=== PATIENT | male | born 1990 ===

== ENCOUNTER 2017-10-31 23:25 | Emergency (ER) | payer SELFPAY ==
[2017-10-31 23:48] VITALS: BP 150/87; PULSE 78; RESP 18; TEMP 97.9; O2SAT 97
--- NOTE | 2017-11-01 00:08 | C.PDOC ---
History Of Present Illness 27 year old male presents to the ED c/o rash to her right armpit for the past week. Patient states he has been using hydrocortisone cream on his rash. Patient states he works outside and when he sweats the area becomes painful. Patient denies fever, chills, nausea, vomit, diarrhea, weakness, numbness. Time Seen by Provider: 10/31/17 23:39 Chief Complaint (Nursing): Abnormal Skin Integrity History Per: Patient History/Exam Limitations: no limitations Onset/Duration Of Symptoms: Days Current Symptoms Are (Timing): Still Present Location Of Injury: Right: Arm Quality Of Symptoms: Painful, Itching. denies: Draining Recent travel outside of the [place]: No Additional History Per: Patient Past Medical History Reviewed: Historical Data, Nursing Documentation, Vital Signs Vital Signs: Last Vital Signs Temp 97.9 F 10/31/17 23:29 Pulse 78 10/31/17 23:29 Resp 18 10/31/17 23:29 BP 150/87 10/31/17 23:29 Pulse Ox 97 11/01/17 01:40 - Medical History PMH: No Chronic Diseases Surgical History: No Surg Hx Family History: States: Unknown Family Hx - Social History Hx Alcohol Use: No Hx Substance Use: No - Immunization History Hx Tetanus Toxoid Vaccination: No Hx Influenza Vaccination: No Hx Pneumococcal Vaccination: No Review Of Systems Constitutional: Negative for: Fever, Chills Cardiovascular: Negative for: Chest Pain Respiratory: Negative for: Cough, Shortness of Breath Gastrointestinal: Negative for: Nausea, Vomiting, Abdominal Pain Musculoskeletal: Negative for: Arm Pain Skin: Positive for: Rash Neurological: Negative for: Weakness, Numbness, Headache Physical Exam - Physical Exam Appears: Non-toxic, No Acute Distress Skin: Warm, Dry, Rash (erythematous, well demarcated on right axilla. No abscess , no tenderness, no swelling) Head: Atraumatic, Normacephalic Eye(s): bilateral: Normal Inspection Oral Mucosa: Moist Neck: Normal ROM, Supple Chest: Symmetrical Cardiovascular: Rhythm Regular Respiratory: Normal Breath Sounds, No Rales, No Rhonchi, No Wheezing Gastrointestinal/Abdominal: Soft, No Tenderness, No Guarding, No Rebound Extremity: Normal ROM, No Tenderness, No Swelling Neurological/Psych: Oriented x3, Normal Speech Gait: Steady ED Course And Treatment O2 Sat by Pulse Oximetry: 97 (ON RA) Pulse Ox Interpretation: Normal Progress Note: On reassessment, patient is resting comfortably, and is in no acute distress. Patient was instructed to follow up with physician/clinic in 1- 2 days for further evaluation Disposition Counseled Patient/Family Regarding: Diagnosis, Need For Followup - Disposition Disposition: HOME/ ROUTINE Disposition Time: 00:04 Condition: STABLE Additional Instructions: kEEP AREA DRY APPLY POWDER DIRECTED FOLLOW UP IN CLINIC RETURN TO ER IF WORSE Prescriptions: Tolnaftate [Tinactin] 1 appl TP BID #1 pow Instructions: Ringworm, Athlete's Foot, and Jock Itch Forms: [employer] (Nepali) Print Language: KAZAKH - Clinical Impression Clinical Impression: Candidiasis of skin - PA / RESIDENTIAL PROGRAM MANAGER / Resident Statement MD/DO has reviewed & agrees with the documentation as recorded. - Scribe Statement The provider has reviewed the documentation as recorded by the Scribe Pedro Dorman All medical record entries made by the Scribe were at my direction and personally dictated by me. I have reviewed the chart and agree that the record accurately reflects my personal performance of the history, physical exam, medical decision making, and the department course for this patient. I have also personally directed, reviewed, and agree with the discharge instructions and disposition.
== END 2017-11-01 00:30 | disposition home or self-care (01) ==
LOC: C.ER 23:25
DX: B37.2 Candidiasis of skin and nail (principal)